=== PATIENT | male | born 1985 | race African-American/Black ===

== ENCOUNTER 2019-11-15 19:35 | Emergency (ER) | payer MEDICAID, OTHER ==
[~2019-11-15] VITALS: Ht 180.3 cm; Wt 91.0 kg
[~2019-11-15 19:35] MED LIST: DICY10CA88 PO; IBUP-1986 PO; NO HOME MEDS
[2019-11-15 19:39] VITALS: BP 135/105
[2019-11-15] MEDS ORDERED: ondansetron 4mg rapidly disintigrating tab PO ONE (20:00)
[2019-11-15] MEDS ORDERED: HYDROcodone/acetaminophen 5mg/325mg tablet PO ONE (20:00)
[2019-11-15] MEDS ORDERED: IBUP-1984 PO (20:06)
[2019-11-15] MEDS ORDERED: CLIN300C70 PO (20:06)
== END 2019-11-15 20:23 | disposition home or self-care (01) ==
LOC: ER 19:36
DX: K04.7 Periapical abscess without sinus (principal); R22.0 Localized swelling, mass and lump, head; F41.9 Anxiety disorder, unspecified; F12.90 Cannabis use, unspecified, uncomplicated; Z88.0 Allergy status to penicillin; Z79.2 Long term (current) use of antibiotics; Z79.899 Other long term (current) drug therapy
CPT/HCPCS: 99283